=== PATIENT | female | born 2005 | race Two or more races ===

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

== ENCOUNTER 2023-04-04 14:33 | Emergency (ER) | payer OTHER ==
[~2023-04-04] VITALS: Ht 160 cm; Wt 68.0 kg
[2023-04-04] MEDS ORDERED: VISTARIL25 MG PO (15:13)
== END 2023-04-04 17:43 | disposition home or self-care (01) ==
LOC: EMR PED 14:33
DX: H10.9 Unspecified conjunctivitis (principal); M62.838 Other muscle spasm